=== PATIENT | male | born 1950 | race Caucasian/White ===

== ENCOUNTER 2020-05-10 08:43 | Outpatient (CLI) | payer MEDICARE, SELFPAY | END 2020-05-10 08:44 | disposition home or self-care (01) | LOC: ANHCOVIDVC 08:43 | PROVIDERS: PCP Family Medicine | DX: Z23 Encounter for immunization (principal) | CPT/HCPCS: 0001A; 91300 ==

== ENCOUNTER 2020-05-31 08:40 | Outpatient (CLI) | payer MEDICARE, SELFPAY | END 2020-05-31 08:41 | disposition home or self-care (01) | LOC: ANHCOVIDVC 08:40 | PROVIDERS: PCP Family Medicine | DX: Z23 Encounter for immunization (principal) | CPT/HCPCS: 0002A; 91300 ==